=== PATIENT | female | born 1980 | race African-American/Black ===

== ENCOUNTER 2022-03-18 08:31 | Outpatient (CLI) | payer MEDICAID | END 2022-03-18 08:32 | disposition home or self-care (01) | LOC: CSHMAMMO 08:31 | PROVIDERS: ATTEND Family Medicine | DX: Z12.31 Encounter for screening mammogram for malignant neoplasm of breast (principal) | CPT/HCPCS: 77067 ==

== ENCOUNTER 2023-03-24 08:20 | Outpatient (CLI) | payer MEDICAID | END 2023-03-24 08:21 | disposition home or self-care (01) | LOC: CSHMAMMO 08:20 | PROVIDERS: ATTEND Family Medicine | DX: Z12.31 Encounter for screening mammogram for malignant neoplasm of breast (principal) | CPT/HCPCS: 77067 ==